=== PATIENT | male | born 1975 | race African-American/Black ===

== ENCOUNTER 2020-05-26 12:15 | Emergency (ER) | payer BC, OTHER ==
[~2020-05-26] VITALS: Ht 185.4 cm; Wt 113.4 kg
[2020-05-26 12:36] VITALS: BP 159/110
[2020-05-26] MEDS ORDERED: IBUPROFEN 800 MG TAB PO ONE (15:00)
[2020-05-26] MEDS ORDERED: cefTRIAXone SOD 1,000 MG VL IM ONE (15:00)
== END 2020-05-26 15:17 | disposition home or self-care (01) ==
LOC: ER 12:15
DX: K04.7 Periapical abscess without sinus (principal)
CPT/HCPCS: 96372; 99283; J0696